=== PATIENT | male | born 1985 | race Caucasian/White ===

== ENCOUNTER 2019-01-06 13:10 | Emergency (ER) | payer OTHER ==
[2019-01-06 13:34] VITALS: BP 112/71
[2019-01-06] MEDS ORDERED: Lidocaine 1%* 5 ML VIAL INJ ONE (13:58)
--- NOTE | 2019-01-06 14:27 | UC ---
Hand/Wrist HPI - HPI Summary HPI Summary: pt cut his left palm with a sharp piece of his equipment while at work today around 11:30am. he cleaned the site. he denies numbness, fb sensation or limited use. tetanus is utd(<10 years) - History Of Current Complaint Chief Complaint: Jesse Stated Complaint: WC-LT HAND LACERATION Time Seen by Provider: 01/06/19 13:31 Hx Obtained From: Patient Onset/Duration: Sudden Onset Pain Intensity: 0 Alleviating Factor(s): Nothing - Allergies/Home Medications Allergies/Adverse Reactions: Allergies Allergy/AdvReac Type Severity Reaction Status Date / Time Penicillins Allergy Swelling Verified 01/06/19 13:34 Home Medications: Home Medications NK [No Home Medications Reported] 01/06/19 [History Confirmed 01/06/19] PMH/Surg Hx/FS Hx/Imm Hx - Additional Past Medical History Additional PMH: 2 prior laceration wounds L hand - Surgical History Surgical History: None - Family History Known Family History: Positive: Non-Contributory - Social History Occupation: Employed Full-time Alcohol Use: Rare Substance Use Type: None Smoking Status (MU): Never Smoked Tobacco - Immunization History Most Recent Tetanus Shot: 2013 Hx Tetanus, Diphtheria Vaccination: Yes Vaccination Up to Date: Yes Review of Systems All Other Systems Reviewed And Are Negative: No Constitutional: Negative: Fever Skin: Positive: Other - cut L palm Neurovascular: Negative: Decreased Sensation Musculoskeletal: Negative: Decreased ROM Neurological: Negative: Weakness, Paresthesia, Numbness Physical Exam Triage Information Reviewed: Yes Appearance: Well-Appearing Vital Signs: Initial Vital Signs Temp 98.6 F 01/06/19 13:30 Pulse 60 01/06/19 13:30 Resp 16 01/06/19 13:30 BP 112/71 01/06/19 13:30 Pulse Ox 99 01/06/19 13:30 Vital Signs Reviewed: Yes Eyes: Positive: Conjunctiva Clear Respiratory: Positive: No respiratory distress Cardiovascular: Positive: RRR - L hand: 3cm curved laceration over the thenar eminence. fat and muscle seen. superficial laceration into the muscle as well- no transection seen. no active bleeding. the hand has full s/v/m function up to point of injury. motor is intact with and without resistance. Skin Exam: Normal, Other - 3cm curved laceration over L palm -thenar eminence area. fat seen and some mm cut as well but not transected. no active bleeding. the hand has full s/v function plus full motor function with and without resistance. no fb seen. Hand/Wrist Course/Dx - Course Course Of Treatment: Case d/w DR Sandoval, [facility] hand orthpedist. given my description, she thinks wound will be fine but will see pt in f/u this week for a recheck. PROCEDURE: time out. site prep betadine. local with 1% Lidocaine. wound explored and superficial mm involved. no FB's or tendon/ligament injuries seen. site irrigated with sterile water(large amounts). prep betadine, draped and closed with 5-0 Nylon and 3 simple stitches plus 1 horizontal mattress. sterile technique used. only slight bleeding. pt tolerated well. nursing dressed site per my instruction. pt advised to maintain a bulky dressing to protect site until cleared by the hand orthopedist. - Differential Dx/Diagnosis Provider Diagnosis: Laceration of skin of left palm Discharge - Sign-Out/Discharge Documenting (check all that apply): Patient Departure All imaging exams completed and their final reports reviewed: No Studies - Discharge Plan Condition: Stable Disposition: HOME Patient Education Materials: Care For Your Stitches (DC), Laceration (DC) Referrals: Valerie Sandoval MD [Medical Doctor] - Additional Instructions: CALL TODAY TO BE SEEN THIS SUNDAY PER DR SANDOVAL. ADVISED WE SPOKE TO DR SANDOVAL. - Billing Disposition and Condition Condition: STABLE Disposition: Home
== END 2019-01-06 14:58 | disposition home or self-care (01) ==
LOC: UCCORT 13:10
DX: S61.412A Laceration without foreign body of left hand, initial encounter (principal); W26.8XXA Contact with other sharp object(s), not elsewhere classified, initial encounter; Y92.69 Other specified industrial and construction area as the place of occurrence of the external cause; Z88.0 Allergy status to penicillin
CPT/HCPCS: 12002; 99212; G0463